=== PATIENT | male | born 1960 | race African-American/Black ===

== ENCOUNTER → 2016-11-27 | Outpatient (CLI) | payer OTHER ==
[~2016-11-27] MED LIST: 3N1 COMMODE MC; ASPI325T32 PO; OXYC-481 PO; TRAM50TA2 PO; WALK1EAC23 MC
--- NOTE | 2016-11-27 13:50 | RADRPT ---
PROCEDURE: XR pelvis/right hip. CLINICAL INDICATION: Hip pain TECHNIQUE: AP pelvis/AP and lateral right hip views performed. COMPARISON: 04/29/2016 FINDINGS: There is a right total hip replacement. There is no evidence of loosening of the prosthesis. No hard monson failure is identified. There is mild to moderate left hip osteoarthrosis. This is associated with joint space narrowing, alberto bchondral sclerosis and osteophytosis. There is normal osseous mineralization. No fractures or oss eous lesions are identified. The soft tissues are unremarkable. IMPRESSION: Right total hip replacement. Mild to moderate left hip osteoarthrosis. RPTAT: [facility] .Wes Aragon MD, MD Date Time Electronically viewed and signed by .Wes Aragon MD, on 11/27/2016 13:49 .B/
== END | disposition home or self-care (01) ==
LOC: HKI 10:38
PROVIDERS: ATTEND Orthopaedic Surgery
DX: Z47.89 Encounter for other orthopedic aftercare (principal); Z96.641 Presence of right artificial hip joint
CPT/HCPCS: 73502; G0463